=== PATIENT | male | born 1960 | race Caucasian/White ===

== ENCOUNTER 2016-11-10 12:19 | Emergency (ER) | payer BC ==
[~2016-11-10] VITALS: Ht 177.8 cm; Wt 77.6 kg
[~2016-11-10 12:19] MED LIST: ALLO300T2 PO; ASPEC81 PO; ATOR-24 PO; BISO5TAB3 PO; CLOP1TAB15 PO; FLUT0.0529 NAE; ISOS60TA PO; MONT1TAB3 PO; NTRGSL/4 UT; RAMI5CAP PO
[2016-11-10 12:25] VITALS: TEMP 36.6; Ht 177.8 cm; Wt 77.6 kg
[2016-11-10] MEDS ORDERED: METO50TA16 PO (12:46)
[2016-11-10] MEDS ORDERED: OXYMETAZOLINE HCL 0.05% NA SPR 15 ML BTL ONE (13:30)
[2016-11-10 13:48] VITALS: BP 143/92; PULSE 74; O2SAT 99
--- NOTE | 2016-11-11 14:58 | EMERGENCY ROOM VISIT NOTE ---
History First contact with patient: 12:31 Chief Complaint: BLEEDING Stated Complaint: BLOODY NOSE FOR OVER 24 HRS Nursing Triage Summary: Triage note: Pt reports bleeding from right nare x 24 hours. pt reports hx of non allergic rhintis. pt reports he takes a low dose asa daily. History of Present Illness The patient is a 56 year old male who presents to the Emergency Room with complaints of intermittent bleeding from his right nares for the past one day. The patient is not on blood thinners but does take a baby aspirin daily. He does not have injury or trauma. No recent fever or chills. The patient states he will have bleeding for 20-30 minutes, it will be slow, and then will stop. He does have a history of known allergic rhinitis and follows with ENT every 6 months. His next appointment is in about 3 weeks. He does not report other symptoms. He is not actively bleeding. Review of Systems More than 10 systems were reviewed and otherwise negative with the exception of history of present illness. Past Medical/Surgical History Medical Problems: (1) Asthma (2) Benign hypertension (3) Diverticulitis (4) Heart disease (5) Placement of stent Family History No pertinent family history Social History Smoking Status: Never Smoker Alcohol Use: occasionally Marital Status: Housing Status: lives with family Occupation Status: employed Current/Historical Medications Scheduled Allopurinol (Zyloprim), 300 MG PO DAILY Aspirin (Aspir-Low), 81 MG PO DAILY Atorvastatin (Lipitor), 40 MG PO DAILY Fluticasone Propionate (Nasal) (Flonase), 2 SPRAYS AVERY DAILY Isosorbide Mononitrate (Imdur), 60 MG PO QAM Metoprolol Tartrate (Lopressor) (Lopressor), 25 MG PO BID Montelukast Sodium (Singulair), 10 MG PO DAILY Nitroglycerin (Nitrostat), 0.4 MG UT PRN Ramipril (Ramipril), 5 MG PO DAILY Allergies Coded Allergies: No Known Allergies (Unverified , 11/10/16) Physical Exam Vital Signs Date Time Temp Pulse Resp B/P Pulse Ox O2 Delivery O2 Flow Rate FiO2 11/10/16 13:48 74 18 143/92 99 11/10/16 12:30 143/92 11/10/16 12:25 36.6 74 18 150/101 99 Room Air Pain Rating (0-10): 0 Physical Exam VITALS: Vitals are noted on the nurse's note and reviewed by myself. Vital signs stable. GENERAL: Well-developed, well-nourished, white male, who is in no acute distress and resting comfortably. Patient is cooperative with the examination. HEAD: Normocephalic atraumatic. NOSE: Patent with mild dry blood appreciated in the right nares. The right- sided nasal septum appears irritated without active bleeding. No significant findings in the left nares. MOUTH: Mucous membranes moist. Tonsils are not enlarged. Pharynx without erythema, blood, or exudate. Uvula midline. Airway patent. NECK: Supple without nuchal rigidity. No lymphadenopathy. No thyromegaly. Cervical spine is nontender. HEART: Regular rate and rhythm without murmurs gallops or rubs. LUNGS: Clear to auscultation bilaterally without wheezes, rales or rhonchi. No retractions or accessory muscle use. Medical Decision & Procedures Medications Administered Medications (Trade) Dose Ordered Sig/[place] Route Start Time Stop Time Status Last Admin Dose Admin Oxymetazoline HCl (Afrin 0.05% Nasal [place]) 1 sprays NOW ONCE NA 11/10/16 13:30 11/10/16 13:34 DC 11/10/16 13:34 1 SPRAYS ED Course Physical exam and history were performed. Nursing notes and EMR were reviewed. Patient appears to have had intermittent bleeding from his nose for the past one day. On examination he does not have active bleeding. There is no significant blood in the posterior pharynx. The patient is not on blood thinners. I discussed options of care with the patient, and will give him Afrin here in the department. He was also given a nasal clamp. He does not appear to need a Rhino Rocket at this time, but we did discuss this as a possibility if he had rebleeding. The patient does have outpatient ENT care for an unrelated process, and he should follow with ENT if he has persistence of his symptoms. He was given additional conservative care information as below. He was invited back to the ER with any new, worsening, or concerning symptoms. The chart was completed utilizing [employer] Voice Recognition Software. Grammatical errors, random word insertions, pronoun errors, and incomplete sentences are an occasional consequence of this system due to software limitations, ambient noise, and hardware issues. Any formal questions or concerns about the content, text, or information contained within the body of this dictation should be directly addressed to the provider for clarification. . Medical Decision Differential diagnosis includes, but is not limited to: Epistaxis, infection, trauma, coagulopathy, and others Impression Primary Impression: Bleeding nose Departure Information Dispostion Home / Self-Care Condition GOOD Forms HOME CARE DOCUMENTATION FORM, IMPORTANT VISIT INFORMATION Patient Instructions A Signature Page, famPlus Additional Instructions Avoid scratching, rubbing, picking, or blowing your nose. The stock parts inspector your nasal passages the more likely they are to bleed. The following two products are available [id number] at most drug stores/pharmacies. --[place] nasal spray or similar generic saline spray to keep the nose moist 3 to 4 times a day. --Apply [place] gel 2-3 times daily to the nostrils to keep them moist. If bleeding recurs use 2 puffs of Afrin then apply direct pressure for an uninterrupted 20 minutes. On and off pressure is much less effective because it will disturb the clots that are forming. If the bleeding is still a problem after 20-30 minutes or is so heavy despite the pressure return to the emergency department. Continue current medications. 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 They may wish to move up your appointment. Follow-up with your primary care physician in 2 to 3 days for a recheck of your current condition.
== END 2016-11-10 13:50 | disposition home or self-care (01) ==
LOC: C.EDB 12:20 → C.EDD 13:50
DX: R04.0 Epistaxis (principal); J30.9 Allergic rhinitis, unspecified; I10 Essential (primary) hypertension; I51.9 Heart disease, unspecified; Z98.61 Coronary angioplasty status; Z79.82 Long term (current) use of aspirin

== ENCOUNTER → 2017-07-25 | Outpatient (CLI) | payer BC ==
[~2017-07-25] MED LIST changes: -BISO5TAB3 PO; -CLOP1TAB15 PO; +METO50TA16 PO
--- NOTE | 2017-07-25 16:46 | DIAGNOSTIC IMAGING REPORT ---
CT PELVIS NO IV/ORAL CONT (CT) CT DOSE: 196.30 mGy.cm CLINICAL HISTORY: K57.92 diverticulitis TECHNIQUE: The patient was scanned without intravenous or oral contrast. A dose lowering technique was utilized adhering to the principles of ALARA. COMPARISON STUDY: None. FINDINGS: There is a small fat-containing umbilical hernia. There is a small Umbilical hernia which contains a small knuckle of bowel. There are no transition zones indicate bowel obstruction. The appendix appears normal. There are multiple colonic diverticula present. There are no peridiverticular inflammatory changes. No free air is visualized. There is no evidence of ascites. There is mild bladder distention. There is mild prostamegaly. There is no evidence of pathologic adenopathy. No destructive skeletal lesions are visualized. IMPRESSION: 1. Distended urinary bladder 2. Diverticulosis. No evidence of acute peridiverticular inflammatory change 3. Normal appendix Electronically signed by: Abner Kamara M.D. 07/25/2017 4:44 PM Dictated Date/Time: 07/25/2017 4:42 PM
== END | disposition home or self-care (01) ==
LOC: C.CTS 16:00
PROVIDERS: ATTEND Family Medicine
DX: K57.92 Diverticulitis of intestine, part unspecified, without perforation or abscess without bleeding (principal)